=== PATIENT | male | born 1940 | race Hispanic/Latino ===

== ENCOUNTER 2018-01-20 09:25 | Inpatient (IN) | payer MEDICARE, BC ==
--- NOTE | 2018-01-20 10:46 | ED PDOC ---
Arrival/HPI - General Chief Complaint: Back Pain Time Seen by Provider: 01/20/18 09:40 Historian: Patient - History of Present Illness Narrative History of Present Illness (Text): 01/20/18 09:40 77 year old male, whose past medical history includes a compression fracture 7 years ago from moving an air conditioner, hypertension, dumping syndrome, prostate cancer, and bowel resection, who presents to the Emergency department complaining of lower back pain since a little over 2 weeks ago, radiating to the right side. Patient notes that he is currently not in pain while sitting. Patient states he was "juggling" a spare tire in the trunk of car when he hurt his back. Patient notes he cannot sleep on the right side due to pain. Patient denies any fever, chills, chest pain, shortness of breath, nausea, vomiting, diarrhea, neck pain, headache, dizziness, or any other complaints. PMD: Dr. Meza Time/Duration: < week (Patient notes lower back pain since a little over 2 weeks ago, radiating to the right side) Symptom Onset: Sudden Symptom Course: Unchanged Context: Other (Patient notes he was "juggling" a spare tire in trunk of car when he hurt his back) Past Medical History - Provider Review Nursing Documentation Reviewed: Yes - Cardiac Hx Cardiac Disorders: Yes Hx Hypertension: Yes - Pulmonary Hx Respiratory Disorders: No - Neurological Hx Neurological Disorder: Yes HX Cerebrovascular Accident: Yes - HEENT Hx HEENT Disorder: No - Renal Hx Renal Disorder: No - Endocrine/Metabolic Hx Endocrine Disorders: No - Hematological/Oncological Hx Blood Disorders: Yes Hx Blood Transfusions: Yes - Integumentary Hx Dermatological Disorder: No - Musculoskeletal/Rheumatological Hx Musculoskeletal Disorders: Yes - Gastrointestinal Hx Gastrointestinal Disorders: Yes Other/Comment: DUNPING SYNDROME - Genitourinary/Gynecological Hx Genitourinary Disorders: Yes Hx Prostate Cancer: Yes - Psychiatric Hx Psychophysiologic Disorder: No Hx Substance Use: No - Surgical History Other/Comment: BOWEL RESECTION Family/Social History - Physician Review Nursing Documentation Reviewed: Yes Family/Social History: No Known Family HX Smoking Status: Never Smoked Hx Alcohol Use: No Hx Substance Use: No Allergies/Home Meds Allergies/Adverse Reactions: Allergies No Known Allergies Allergy (Verified 01/20/18 09:39) Home Medications: Home Meds Medication Instructions Recorded Confirmed Losartan [Cozaar] 50 mg PO DAILY 01/20/18 01/20/18 amLODIPine [Norvasc] 5 ng PO DAILY 01/20/18 01/20/18 Review of Systems - Physician Review All systems were reviewed & negative as marked: Yes - Review of Systems Constitutional: Normal. absent: Fevers Eyes: Normal ENT: Normal Respiratory: Normal. absent: SOB Cardiovascular: Normal. absent: Chest Pain Gastrointestinal: Normal. absent: Diarrhea, Nausea, Vomiting Genitourinary Male: Normal Musculoskeletal: Back Pain (patient notes lower back pain for a little over 2 weeks, radiating to right side ). absent: Normal, Neck Pain Skin: Normal Neurological: Normal. absent: Headache, Dizziness Endocrine: Normal Hemo/Lymphatic: Normal Psychiatric: Normal Physical Exam Vital Signs Reviewed: Yes Vital Signs Temp Pulse Resp BP Pulse Ox 01/20/18 16:30 78 18 155/61 H 100 01/20/18 15:00 86 18 158/58 H 100 01/20/18 11:35 98.2 F 92 H 16 160/54 H 100 01/20/18 10:49 98.7 F 91 H 16 173/57 H 100 Temperature: Afebrile Blood Pressure: Hypertensive Pulse: Tachycardic Respiratory Rate: Normal Appearance: Positive for: Well-Appearing, Non-Toxic Pain Distress: None Mental Status: Positive for: Alert and Oriented X 3 - Systems Exam Head: Present: Atraumatic, Normocephalic Pupils: Present: PERRL Extroacular Muscles: Present: EOMI Conjunctiva: Present: Normal Mouth: Present: Moist Mucous Membranes Neck: Present: Normal Range of Motion Respiratory/Chest: Present: Clear to Auscultation, Good Air Exchange. No: Respiratory Distress, Accessory Muscle Use Cardiovascular: Present: Regular Rate and Rhythm, Normal S1, S2. No: Murmurs Abdomen: No: Tenderness, Distention, Peritoneal Signs Back: Present: Midline Tenderness, Pain with Leg Raise (+ pain to right side of back with right leg raise). No: Normal Inspection Upper Extremity: Present: Normal Inspection. No: Cyanosis, Edema Lower Extremity: Present: Normal Inspection. No: Edema Neurological: Present: GCS=15, CN II-XII Intact, Speech Normal Skin: Present: Warm, Dry, Normal Color. No: Rashes Psychiatric: Present: Alert, Oriented x 3, Normal Insight, Normal Concentration Medical Decision Making ED Course and Treatment: 01/20/18 09:40 Impression: 77 year old male presents to the Emergency department for lower back pain since a little over 2 weeks ago, radiating to the right side after "juggling" a tire in trunk of car. Differential Diagnosis included but are not limited to: Plan: -- CT of Lumbar spine w/o contrast -- Xanax -- MRI of spinal canal lumbar w/o cont -- Reassess and disposition Progress Notes: CT of Lumbar spine reviewed by radiologist, shows: Dictator : Shahzad Guerin MD Report Date : 01/20/2018 11:39:40 FINDINGS: VERTEBRAE: There is age indeterminate mild compression deformity of L1 associated with large Schmorl nodes at the superior endplate. There is age indeterminate moderate compression deformity of L2 with 50 percent loss of the height of the L2 vertebral body. There is age indeterminate moderate to severe compression deformity of L3 vertebral body with approximately 65-70 percent loss of the vertebral height. No evidence of significant compression deformity of L4 and L5. There is a diffuse moderate to severe osteopenic changes. DISCS/SPINAL CANAL/NEURAL FORAMINA: L1-2: No evidence of significant spinal or neural foraminal narrowing. Mild posterior ligament and facet joint hypertrophy noted. L2-3: Small posterior disc bulge associated with posterior ligament and facet joint hypertrophy which resulting in mild spinal is stenosis. L3-4: No evidence of significant spinal or neural foraminal narrowing. Mild- to-moderate posterior ligament and facet joint hypertrophy noted. L4-5: Small posterior osteophyte disc bulge complex associated with mild posterior ligament and facet joint hypertrophy which resulting in mild spinal stenosis. There is moderate narrowing of the intervertebral disc space at L4-L5 L5-S1: Small osteophyte disc bulge complex without significant spinal or neural foraminal narrowing. There is moderate to severe narrowing of the intervertebral disc space at L5-S1 PARASPINAL SOFT TISSUES: Large scattered colonic diverticulosis are noted. Sigmoid colon wall thickening is also noted. Diffuse atherosclerotic calcification in the abdominal aorta and iliac arteries is also noted. OTHER FINDINGS: None. IMPRESSION: Age indeterminate compression deformity of L1, L2 and L3 vertebrae more prominent at L3. If there is clinical suspicious for acute fracture further assessment by MRI may be obtained. Moderate diffuse osteopenia. Moderate degenerative disc and endplate changes more prominent at L4-L5 as described. Lumbar Spine MRI reviewed by radiologist, shows: Dictator : Shahzad Guerin MD Report Date : 01/20/2018 14:53:49 FINDINGS: Normal lumbar lordosis. Again noted are multiple compression deformity at the lumbar spine. There is moderate compression deformity and approximately 50 percent loss of the L2 vertebral body associated with diffuse bone marrow edema noted. These findings suggestive of acute compression deformity of L2. Compression deformity of L1 and L3 are again noted without evidence of bone marrow edema likely chronic. Conus medullaris unremarkable at the level of T12 Paraspinal soft tissues are unremarkable. T12-L1: No disc herniation, spinal canal stenosis or neural foraminal narrowing. L1-2: There is a small posterior disc bulge without evidence of significant spinal or neural foraminal narrowing. L2-3: There is a small osteophyte disc bulge complex associated with posterior ligament and facet joint hypertrophy without evidence of significant spinal or neural foraminal narrowing L3-4: Small posterior osteophyte disc bulge complex associated with posterior ligament and facet joint hypertrophy which resulting in mild narrowing of the thecal sac. L4-5: There is moderate to mildly severe narrowing of the intervertebral disc space. There is a small posterior osteophyte disc bulge complex seen associated with mild posterior ligament hypertrophy without evidence of significant spinal narrowing. L5-S1: No disc herniation, spinal canal stenosis or neural foraminal narrowing. OTHER FINDINGS: None. IMPRESSION: Moderate compression deformity of L2 associated with diffuse bone marrow edema suggestive of acute fracture. Moderate L1 and moderate to severe L3 compression deformity without evidence of bone marrow edema suggestive of chronic fracture. Moderate degenerative changes. - Lab Interpretations Lab Results: 01/20/18 16:23 01/20/18 16:23 Lab Results 01/20/18 16:23: Sodium 137, Potassium 5.1 H, Chloride 99, Carbon Dioxide 29, Anion Gap 13, BUN 22 H, Creatinine 1.2, Est GFR ( Amer) > 60, Est GFR ( Non-Af Amer) 58, Random Glucose 138 H, Calcium 10.8 H, Total Bilirubin 0.5, AST 33, ALT 21, Alkaline Phosphatase 83, Total Protein 8.4 H, Albumin 4.1, Globulin 4.3, Albumin/Globulin Ratio 1.0 L 01/20/18 16:23: PT 12.2, INR 1.07, APTT 31.2 01/20/18 16:23: WBC 7.8, RBC 3.65, Hgb 11.0 L, Hct 33.2 L, MCV 91.0, MCH 30.1, MCHC 33.1, RDW 13.3, Plt Count 363, MPV 8.5, Gran % 57.0, Lymph % (Auto) 36.0 H , [place] % (Auto) 5.5, Eos % (Auto) 1.2 L, Baso % (Auto) 0.3, Gran # 4.46, Lymph # (Auto) 2.8, [place] # (Auto) 0.4, Eos # (Auto) 0.1, Baso # (Auto) 0.02 - RAD Interpretation Radiology Orders: 01/20/18 09:40 LUMBAR SPINE W/O CONTRAST [CT] Stat 01/20/18 11:49 SPINAL CANAL LUMBAR W/O CONT [MRI] Stat - Medication Orders Current Medication Orders: Amlodipine Besylate (Norvasc) 5 mg PO DAILY CHUCK Sodium Chloride (Sodium Chloride 0.9%) 1,000 mls @ 100 mls/hr IV .Q10H CHUCK Losartan Potassium (Cozaar) 50 mg PO DAILY CHUCK Morphine Sulfate (Morphine) 5 mg IVP Q6H PRN PRN Reason: Pain, moderate (4-7) Discontinued Medications Alprazolam (Xanax) 0.125 mg PO STAT STA PRN Reason: Protocol Stop: 01/20/18 12:18 Last Admin: 01/20/18 12:32 Dose: 0.125 mg Alprazolam (Xanax) 0.25 mg PO HS STA PRN Reason: Protocol Stop: 01/20/18 18:12 Methylprednisolone (Solu-Medrol) 125 mg IVP STAT STA Stop: 01/20/18 15:56 Last Admin: 01/20/18 16:56 Dose: 125 mg IVP Administration Document 01/20/18 16:56 ME (Rec: 01/20/18 16:56 [id number] Charges for Administration # of IVP Administrations 1 - Scribe Statement The provider has reviewed the documentation as recorded by the Scribe Karina Hernandez All medical record entries made by the Scribe were at my direction and personally dictated by me. I have reviewed the chart and agree that the record accurately reflects my personal performance of the history, physical exam, medical decision making, and the department course for this patient. I have also personally directed, reviewed, and agree with the discharge instructions and disposition. Disposition/Present on Arrival - Present on Arrival Any Indicators Present on Arrival: No History of DVT/PE: No History of Uncontrolled Diabetes: No Urinary Catheter: No History of Decub. Ulcer: No History Surgical Site Infection Following: None - Disposition Have Diagnosis and Disposition been Completed?: Yes Diagnosis: Compression fracture of L2 Disposition: HOME/ ROUTINE Disposition Time: 14:50 Condition: FAIR
--- NOTE | 2018-01-20 11:41 | CT ---
Date of service: 01/20/2018 PROCEDURE: CT Lumbar Spine without contrast HISTORY: r/o fx - h/o compression fx COMPARISON: None available. TECHNIQUE: Axial computed tomography images were obtained of the lumbar spine without the use of intravenous contrast. Coronal and sagittal reformatted images were created and reviewed. Radiation dose: Total exam DLP = 324.0 mGy-cm. This CT exam was performed using one or more of the following dose reduction techniques: Automated exposure control, adjustment of the mA and/or kV according to patient size, and/or use of iterative reconstruction technique. FINDINGS: VERTEBRAE: There is age indeterminate mild compression deformity of L1 associated with large Schmorl nodes at the superior endplate. There is age indeterminate moderate compression deformity of L2 with 50 percent loss of the height of the L2 vertebral body. There is age indeterminate moderate to severe compression deformity of L3 vertebral body with approximately 65-70 percent loss of the vertebral height. No evidence of significant compression deformity of L4 and L5. There is a diffuse moderate to severe osteopenic changes. DISCS/SPINAL CANAL/NEURAL FORAMINA: L1-2: No evidence of significant spinal or neural foraminal narrowing. Mild posterior ligament and facet joint hypertrophy noted. L2-3: Small posterior disc bulge associated with posterior ligament and facet joint hypertrophy which resulting in mild spinal is stenosis. L3-4: No evidence of significant spinal or neural foraminal narrowing. [id number] posterior ligament and facet joint hypertrophy noted. L4-5: Small posterior osteophyte disc bulge complex associated with mild posterior ligament and facet joint hypertrophy which resulting in mild spinal stenosis. There is moderate narrowing of the intervertebral disc space at L4-L5 L5-S1: Small osteophyte disc bulge complex without significant spinal or neural foraminal narrowing. There is moderate to severe narrowing of the intervertebral disc space at L5-S1 PARASPINAL SOFT TISSUES: Large scattered colonic diverticulosis are noted. Sigmoid colon wall thickening is also noted. Diffuse atherosclerotic calcification in the abdominal aorta and iliac arteries is also noted. OTHER FINDINGS: None. IMPRESSION: Age indeterminate compression deformity of L1, L2 and L3 vertebrae more prominent at L3. If there is clinical suspicious for acute fracture further assessment by MRI may be obtained. Moderate diffuse osteopenia. Moderate degenerative disc and endplate changes more prominent at L4-L5 as described.
--- NOTE | 2018-01-20 14:55 | MRI ---
Date of service: 01/20/2018 PROCEDURE: MR LUMBAR SPINE WITHOUT CONTRAST HISTORY: ? acute fracture -h/o compression fx-CT done today COMPARISON: Comparison is made to the previous CT of the lumbar spine dated 01/20/2018 TECHNIQUE: Multiecho multiplanar sequences were performed through the lumbar spine without the use of intravenous contrast. FINDINGS: Normal lumbar lordosis. Again noted are multiple compression deformity at the lumbar spine. There is moderate compression deformity and approximately 50 percent loss of the L2 vertebral body associated with diffuse bone marrow edema noted. These findings suggestive of acute compression deformity of L2. Compression deformity of L1 and L3 are again noted without evidence of bone marrow edema likely chronic. Conus medullaris unremarkable at the level of T12 Paraspinal soft tissues are unremarkable. T12-L1: No disc herniation, spinal canal stenosis or neural foraminal narrowing. L1-2: There is a small posterior disc bulge without evidence of significant spinal or neural foraminal narrowing. L2-3: There is a small osteophyte disc bulge complex associated with posterior ligament and facet joint hypertrophy without evidence of significant spinal or neural foraminal narrowing L3-4: Small posterior osteophyte disc bulge complex associated with posterior ligament and facet joint hypertrophy which resulting in mild narrowing of the thecal sac. L4-5: There is moderate to mildly severe narrowing of the intervertebral disc space. There is a small posterior osteophyte disc bulge complex seen associated with mild posterior ligament hypertrophy without evidence of significant spinal narrowing. L5-S1: No disc herniation, spinal canal stenosis or neural foraminal narrowing. OTHER FINDINGS: None. IMPRESSION: Moderate compression deformity of L2 associated with diffuse bone marrow edema suggestive of acute fracture. Moderate L1 and moderate to severe L3 compression deformity without evidence of bone marrow edema suggestive of chronic fracture. Moderate degenerative changes.
[2018-01-20 16:50] LABS: BASO # 0.02 K/mm3 (0.0-2.0); BASO % 0.3 % (0.0-3.0); EOS # 0.1 (0.0-0.7); EOS % 1.2 % (1.5-5.0); GRAN # 4.46 (1.4-6.5); LYMPH # 2.8 (1.2-3.4); MEAN CORPUSCULAR HEMOGLOBIN 30.1 pg (25.0-35.0); MEAN CORPUSCULAR HGB CONC 33.1 g/dl (31.0-37.0); MEAN PLATELET VOLUME 8.5 fl (7.0-11.0); MONO # 0.4 (0.1-0.6); MONO % 5.5 % (1.0-6.0); RBC 3.65 10^6/uL (3.5-6.1); RED CELL DISTRIBUTION WIDTH 13.3 % (11.5-14.5); WHITE BLOOD COUNT 7.8 10^3/ul (4.5-11.0)
[2018-01-20 16:59] LABS: INR 1.07; PARTIAL THROMBOPLASTIN TIME 31.2 Seconds (25.1-36.5); PROTHROMBIN TIME 12.2 SECONDS (9.4-12.5)
[2018-01-20 17:03] LABS: ALBUMIN 4.1 g/dL (3.0-4.8); ALT/SGPT 21 U/L (7-56); AST/SGOT 33 U/L (17-59); BLOOD UREA NITROGEN 22 mg/dL (7-21); CALCIUM 10.8 mg/dL (8.4-10.5); GFR NON-AFRICAN AMERICAN 58
[2018-01-20] MEDS ORDERED: Sodium Chloride 0.9% 1,000 ML IV SCH ×2 (17:30→18:23)
[2018-01-20 21:36] VITALS: BMI 19.1
[2018-01-20] MEDS ORDERED: Pneumococcal 23-Valent Vaccine IM ONE (21:37)
--- NOTE | 2018-01-20 23:04 | HP ---
HISTORY OF PRESENT ILLNESS: The patient is a 77-year-old, came to emergency room because of intractable back pain going on for the last two weeks, got worse this morning. So, he came to emergency room for further evaluation. The patient states pain starts in the lower back, radiates to the right side of his buttock onto the leg. Denies any numbness. Pain is more when he ambulates. The patient states it started with his activity that involved taking his car tyre out from the trunk. Denies any numbness or weakness in the leg. Pain is more on ambulating and laying on the right side. Denies any urinary symptoms or bowel symptoms. No nausea or vomiting. No diarrhea. PAST MEDICAL HISTORY: Significant for: 1. Hypertension. 2. History of prostate CA. 3. History of bowel resection. 4. History of compression fracture seven years ago when he was moving air conditioner. PAST SURGICAL HISTORY: Significant for: 1. Prostatic surgery. 2. History of bowel resection. ALLERGIES: HE IS NOT ALLERGIC TO ANY MEDICATION. MEDICATIONS AT HOME: He is on amlodipine 5 mg daily, losartan 50 mg daily. SOCIAL HISTORY: Denies smoking, drinking or alcohol use. REVIEW OF SYSTEMS: Significant for low back pain radiating to the right back. PHYSICAL EXAMINATION GENERAL: He is awake, alert, oriented, communicative. VITAL SIGNS: He is afebrile, pulse 86, respiration 18, blood pressure 155/61. LUNGS: Bilateral good airflow. No rhonchi or crackle. HEART: S1 and S2 audible. ABDOMEN: Soft, nontender. No rebound, no guarding. NEUROLOGIC: He is awake, alert, oriented, able to communicate. LABORATORY DATA: WBC 7.8, hemoglobin 11, hematocrit 33.2, platelets 363. PT 12.2, INR 1.07. Chemistry: Sodium 137, potassium 5.1, chloride 99, CO2 of 29, BUN 22, creatinine 1.2, blood sugar of 138. Calcium is 7.8. IMPRESSION: 1. Compression fracture of L2. 2. Hypertension. 3. Hyperlipidemia. PLAN: The patient will be admitted. We will restart his usual medications. Analgesic as needed. Start him on laxatives. Dr. Amari Kumar has been consulted for possible kyphoplasty. MRI of the lumbosacral spine was done that shows compression fracture deformity of L2 associated with diffuse bone marrow edema suggestive of acute fracture L1 and [id number] L3 compression deformity without evidence of bone marrow edema suggestive of fracture and the patient has moderate degenerative disk disease. Start him on laxative also. We will follow up the patient in the a.m. Neri Rico MD
[2018-01-21 07:18] LABS: GRAN # 4.58 (1.4-6.5); GRAN % 70.5 % (50.0-68.0); HEMOGLOBIN 10.4 g/dL (14.0-18.0); LYMPH # 1.8 (1.2-3.4); LYMPH % 27.2 % (22.0-35.0); MEAN CELL VOLUME 91.2 fl (80.0-105.0); MEAN CORPUSCULAR HEMOGLOBIN 29.5 pg (25.0-35.0); MEAN CORPUSCULAR HGB CONC 32.4 g/dl (31.0-37.0); MEAN PLATELET VOLUME 8.5 fl (7.0-11.0); MONO # 0.2 (0.1-0.6); MONO % 2.3 % (1.0-6.0); RBC 3.52 10^6/uL (3.5-6.1); RED CELL DISTRIBUTION WIDTH 13.6 % (11.5-14.5); WHITE BLOOD COUNT 6.5 10^3/ul (4.5-11.0)
[2018-01-21 07:26] LABS: ALT/SGPT 21 U/L (7-56); AST/SGOT 38 U/L (17-59); BLOOD UREA NITROGEN 24 mg/dL (7-21); GFR NON-AFRICAN AMERICAN > 60; HDL CHOLESTEROL 46 mg/dL (29-60)
[2018-01-21 07:37] LABS: LDL CHOLESTEROL 55 mg/dL (0-129)
[2018-01-21 07:49] LABS: FREE T4 1.29 ng/dL (0.78-2.19)
--- NOTE | 2018-01-21 12:57 | PN ---
DATE: 01/21/2018 SUBJECTIVE: The patient is 77 years old, seen and examined, lying in bed. Complained of pain more on moving. Awaiting Dr. Amari Kumar's evaluation for possible kyphoplasty. PHYSICAL EXAMINATION: VITAL SIGNS: He is afebrile, pulse 99, respirations 20, blood pressure 138/60. LUNGS: Bilateral fair airflow. No rhonchi or crackle. HEART: S1 and S2 audible. ABDOMEN: Soft. Nontender. No rebound. No guarding. NEUROLOGICAL: The patient is awake, alert, oriented, communicative. LABORATORY EXAM: WBC 6.5, hemoglobin 10.4, hematocrit 32.1, platelet 367. PT 12.2, INR 1.07. Chemistry: Sodium 136, potassium 5.2, chloride 101, CO2 of 26, BUN 24, creatinine 1, blood sugar is 132, magnesium 2.3. ASSESSMENT: 1. Intractable back pain, new L2 associated compression fracture. 2. History of degenerative joint disease, spine. 3. Hypertension. PLAN: We will continue him on current medication. Awaiting Dr. Amari Kumar's evaluation. I will give him one dose of Kayexalate. Reevaluate the patient in the a.m. Neri Rico MD
[2018-01-21] MEDS: Sod Polystyrene Sulf 15 gm/60 ml Susp PO ONE ×2 (13:11→13:15)
[2018-01-22 07:51] LABS: ALBUMIN (PEP) 3.3 g/dL (3.8-4.8); ALPHA-1-GLOBULIN (PEP) 0.4 g/dL (0.2-0.3)
[2018-01-22 07:51] LABS: BASO # 0.01 K/mm3 (0.0-2.0); BASO % 0.1 % (0.0-3.0); EOS # 0.1 (0.0-0.7); EOS % 0.7 % (1.5-5.0); GRAN # 5.17 (1.4-6.5); GRAN % 60.7 % (50.0-68.0); HEMOGLOBIN 9.7 g/dL (14.0-18.0); MEAN CORPUSCULAR HEMOGLOBIN 29.9 pg (25.0-35.0); MEAN CORPUSCULAR HGB CONC 32.9 g/dl (31.0-37.0); MEAN PLATELET VOLUME 8.1 fl (7.0-11.0); MONO # 0.3 (0.1-0.6); MONO % 3.5 % (1.0-6.0); RBC 3.24 10^6/uL (3.5-6.1); RED CELL DISTRIBUTION WIDTH 13.7 % (11.5-14.5); WHITE BLOOD COUNT 8.5 10^3/ul (4.5-11.0)
[2018-01-22] MEDS: POLYETHYLENE GLYCOL 3350 17 GM/Dose PACKET PO SCH (11:14)
[2018-01-22 11:36] LABS: ALB/GLOB RATIO 0.9 (1.1-1.8); ALBUMIN 3.5 g/dL (3.0-4.8); ALT/SGPT 20 U/L (7-56); AST/SGOT 33 U/L (17-59); BLOOD UREA NITROGEN 28 mg/dL (7-21); CALCIUM 9.5 mg/dL (8.4-10.5); GFR NON-AFRICAN AMERICAN > 60
[2018-01-22] MEDS ORDERED: Bisacodyl 5mg EC Tab PO ONE (15:25)
--- NOTE | 2018-01-22 18:20 | PN ---
DATE: 01/22/2018 SUBJECTIVE: The patient is 77 years old, seen and examined, lying in bed. He states he feels okay while he is in the bed, but hurts when he moves. PHYSICAL EXAMINATION: VITAL SIGNS: He is afebrile, pulse 84, respirations 20, blood pressure 142/51. LUNGS: Bilateral fair airflow. No rhonchi or crackle. HEART: S1 and S2 audible. ABDOMEN: Soft. Nontender. No rebound. No guarding. NEUROLOGICAL: He is awake, alert, oriented, able to communicate. Moves all extremities. MUSCULOSKELETAL: He has palpable discomfort in the lower lumbar spine area. LABORATORY DATA: WBC 8.5, hemoglobin 9.7, hematocrit 29.5, platelet 290. Chemistry: Sodium 135, potassium 4.5, chloride 100, CO2 of 28, BUN 28, creatinine 1.1, blood sugar of 100. ASSESSMENT: 1. L2 compression fracture. 2. Intractable back pain. 3. Hypertension. 4. Hyperlipidemia. 5. Constipation. PLAN: We will keep the patient on current pain management and he is scheduled to have kyphoplasty done tomorrow by Dr. Amari Kumar. Neri Rico MD
[2018-01-22] MEDS ORDERED: Magnesium Citrate Oral SOL (300 ml) PO ONE (18:31)
[2018-01-22] MEDS ORDERED: POLYETHYLENE GLYCOL 3350 17 GM/Dose PACKET PO ONE (23:17)
[2018-01-23 08:00] LABS: ALBUMIN 4.3 g/dL (3.0-4.8); ALT/SGPT 21 U/L (7-56); AST/SGOT 32 U/L (17-59); BLOOD UREA NITROGEN 22 mg/dL (7-21); CALCIUM 9.8 mg/dL (8.4-10.5); GFR NON-AFRICAN AMERICAN > 60
[2018-01-23] MEDS: POLYETHYLENE GLYCOL 3350 17 GM/Dose PACKET PO SCH (09:26)
[2018-01-23] MEDS ORDERED: Iohexol 350mgl/ml 50 ML ONE (09:36)
[2018-01-23] MEDS ORDERED: Lidocaine PF 2% (5 ml) Inj (For Cardiac Arrhy) ONE (09:36)
[2018-01-23] MEDS ORDERED: Midazolam 2 MG/2 ML VIAL ONE ×2 (10:16→10:52)
[2018-01-23] MEDS ORDERED: Sodium Chloride 0.45% 1,000 ML IV SCH (11:30)
--- NOTE | 2018-01-23 12:13 | PN ---
DATE: 01/23/2018 SUBJECTIVE: The patient is 77 years old, seen and examined, doing well. Had kyphoplasty for L2 done, doing okay. Complained of discomfort to area. PHYSICAL EXAMINATION: VITAL SIGNS: The patient is afebrile, pulse 70, respirations 16, blood pressure 140/51. LUNGS: Bilateral fair airflow. No rhonchi or crackle. HEART: S1 and S2 audible. ABDOMEN: Soft. Nontender. No rebound. No guarding. NEUROLOGICAL: The patient is awake, alert, oriented, communicative. LABORATORY EXAM: Sodium 137, potassium 4.5, chloride 95, CO2 of 31, BUN 22, creatinine 1.1, blood sugar of 102. LFTs are within normal limit. ASSESSMENT: 1. Status post L2 kyphoplasty. 2. Hypertension. 3. Chronic back pain. PLAN: We will observe him for today. We will put order for DOMINIK deng. Physical therapy from tomorrow. Depending on how is the patient's performance status, we will decide if he will be discharged home or TCU. Neri Rico MD
--- NOTE | 2018-01-23 14:05 | VASCULAR ---
PROCEDURE: 1. L2 kyphoplasty. HISTORY: Severe, refractory back pain. Unresponsive to bed rest and analgesics. Acute L2 compression fracture on MRI. Previous additional lumbar compression fracture PHYSICIAN(S): Amari Kumar MD. TECHNIQUE: he relative risks and indications of the procedure were explained to the patient and his son and informed written consent obtained. The patient was placed prone on the arteriography table and the thoracolumbar spine prepped and draped in the usual sterile fashion. Conscious sedation and monitoring were provided throughout the procedure by a nurse. The L2 vertebral body was carefully localized with fluoroscopy. The skin and soft tissues were anesthetized with 1% Xylocaine. Under direct fluoroscopic guidance, bilateral transpedicular bone needles were placed into the posterior aspect of the 2 vertebral body. Next bilateral 15mm bone balloons were placed in the mid to anterior portion of the L2 vertebral body. They were inflated to approximately 4 cc apiece with dilute contrast. The balloons were removed and 7.5 cc of barium-impregnated PMMA cement instilled into the L2 vertebral body. No extravasation was seen. The bone needles were removed. The patient tolerated the procedure well. IMPRESSION: 1. Fluoroscopically-guided L2 kyphoplasty.
[2018-01-23 17:34] VITALS: O2SAT 98
[2018-01-24 08:26] VITALS: RESP 20; TEMP 98.1
[2018-01-24] MEDS: POLYETHYLENE GLYCOL 3350 17 GM/Dose PACKET PO SCH ×2 (10:49→10:56)
[2018-01-24 10:55] VITALS: BP 168/79; PULSE 74
--- NOTE | 2018-01-25 04:02 | DS ---
HISTORY OF PRESENT ILLNESS: The patient is 77 years old, seen and examined, underwent L2 kyphoplasty yesterday, doing well, was able to ambulate with physical therapist, states he feels confident going home, does not want to go to [facility], although it was offered. He does not want to take any narcotic either. PHYSICAL EXAMINATION: VITAL SIGNS: He is afebrile, pulse 96, respirations 20, blood pressure 168/79. LUNGS: Bilateral good airflow. No rhonchi or crackle. HEART: S1 and S2 audible. ABDOMEN: Soft. Nontender. No rebound. No guarding. NEUROLOGICAL: The patient is awake, alert, oriented, communicative, ambulatory. ASSESSMENT: 1. L2 compression fracture. 2. Status post kyphoplasty. 3. Hypertension. 4. Hyperlipidemia. 5. Abnormal band on protein electrophoresis. PLAN: The patient is being discharged home today. He does not want to be on any medication or any narcotics. He will resume his losartan. Patient will be discharged home today. He is advised to follow with scientific associate and he will follow with his PMD. Neri Rico MD
== END 2018-01-24 13:16 | disposition home or self-care (01) | DRG 517 ==
LOC: ED 09:25 → ERH 17:23 → 3RSO 18:44 → OBSVTOIN 01-21 15:33
PROVIDERS: ADMIT Internal Medicine; ATTEND Internal Medicine
PROC: 0QS03ZZ Reposition Lumbar Vertebra, Percutaneous Approach (ICD-10-PCS; principal; 2018-01-23)
PROC: 0QU03JZ Supplement Lumbar Vertebra with Synthetic Substitute, Percutaneous Approach (ICD-10-PCS; 2018-01-23)
DX: M48.56XA Collapsed vertebra, not elsewhere classified, lumbar region, initial encounter for fracture (principal); I10 Essential (primary) hypertension; M85.80 Other specified disorders of bone density and structure, unspecified site; M47.9 Spondylosis, unspecified; M51.36 Other intervertebral disc degeneration, lumbar region; E78.5 Hyperlipidemia, unspecified; G89.29 Other chronic pain; K91.1 Postgastric surgery syndromes; K59.00 Constipation, unspecified; Z85.46 Personal history of malignant neoplasm of prostate; Z86.73 Personal history of transient ischemic attack (TIA), and cerebral infarction without residual deficits